=== PATIENT | male | born 1955 | race African-American/Black ===

== ENCOUNTER 2018-11-07 14:52 | Emergency (ER) | payer MEDICAID, OTHER ==
[~2018-11-07] VITALS: Ht 188 cm; Wt 113.4 kg
[2018-11-07] MEDS ORDERED: AMOX-358 PO (15:19)
--- NOTE | 2018-11-07 15:20 | ED Integumentary General ---
General Chief Complaint: Skin/Wound Problems Stated Complaint: LT MIDDLE FINGER WOUND CHECK Nursing Triage Note: PT HAS A HANG NAIL ON HIS LEFT HAND 3RD FINGER THAT IS HURTING HIM. rEPORTS HIS PAIN IS A 10/10. HAS NOT TRIED ANYTHING AT HOME FOR THE PAIN. Source: patient, RN notes reviewed Exam Limitations: no limitations History of Present Illness Date Seen by Provider: Nov 07, 2018 Time Seen by Provider: 15:16 Initial Comments Patient presents c/ c/o worsening left middle finger pain, swelling, and redness x 3 days. No known injury. Did bite off a hang nail prior to onset. Timing/Duration: constant Severity: severe Location: hands (left middle finger) Possible Cause: no cause identified Modifying Factors: improves with other (nothing tried) Associated Symptoms: denies symptoms Allergies and Home Medications Home Medications Amoxicillin/Potassium Clav 1 Each Tablet, 1 EACH PO BID Prescribed by: AISHWARYA KINGSTON on 11/07/18 1519 Patient Home Medication List Home Medication List Reviewed: Yes Review of Systems Review of Systems Constitutional: see HPI Skin: see HPI, other (redness; pain left middle finger) All Other Systems Reviewed Negative Unless Noted: Yes (Negative excepted noted.) Past Njfrysd-Eiqrne-Szijll Hx Patient Social History Alcohol Use: Denies Use Recreational Drug Use: No Recent Foreign Travel: No Contact w/Someone Who Travel: No Recent Infectious Disease Expo: No Recent Hopitalizations: No Physical Abuse: No Sexual Abuse: No Mistreated: No Immunizations Up To Date Tetanus Booster (TDap): Less than 5yrs Seasonal Allergies Seasonal Allergies: No Past Medical History Surgeries: No Respiratory: No Cardiac: Yes Hypertension Neurological: No Genitourinary: No Musculoskeletal: No Endocrine: Yes Diabetes, Insulin dep HEENT: No Cancer: No Integumentary: No Physical Exam Vital Signs Capillary Refill : Less Than 3 Seconds General Appearance: WD/WN, no apparent distress Respiratory: no respiratory distress Neurologic/Psychiatric: no motor/sensory deficits, alert, oriented x 3 Skin: warm/dry, other ((+) obvious paronychia left middle finger nail base; red ; tender) Skin Problem Location: upper extremities (left middle finger) Skin Problem Character: erythema (left middle finger nail base), tenderness ( left middle finger nail base) Progress/Results/Core Measures Results/Orders Vital Signs/I&O Blood Pressure Mean: 117 Departure Impression Primary Impression: Paronychia of finger of left hand Disposition: HOME, SELF-CARE Condition: Stable Departure-Patient Inst. Decision time for Depature: 15:17 Referrals: CHIVO CHRISTY MD (PCP/Family) Primary Care Physician Patient Instructions: Paronychia Add. Discharge Instructions: All discharge instructions reviewed with patient and/or family. Voiced understanding. RECOMMEND 400 mg OF IBUPROFEN &/OR 1000 mg OF TYLENOL EVERY 6 HOURS NEEDED FOR PAIN. DO NOT EXCEED 4000 mg OF TYLENOL IN A 24 HOUR PERIOD OF TIME. Scripts Amoxicillin/Potassium Clav (Augmentin 875-125 Tablet) 1 Each Tablet 1 EACH PO BID for 10 Days, #20 TAB 0 Refills Prov: AISHWARYA KINGSTON DO 11/07/18 AISHWARYA KINGSTON DO Nov 07, 2018 15:19
[2018-11-07 15:31] VITALS: BP 172/68
== END 2018-11-07 15:30 | disposition home or self-care (01) ==
LOC: ER FS 14:55
DX: L03.012 Cellulitis of left finger (principal); I10 Essential (primary) hypertension; E11.9 Type 2 diabetes mellitus without complications
CPT/HCPCS: 99282

== ENCOUNTER 2019-04-10 08:44 | Emergency (ER) | payer MEDICAID ==
[~2019-04-10] VITALS: Ht 187 cm; Wt 126.6 kg
[~2019-04-10 08:44] MED LIST: AMOX-358 PO
--- NOTE | 2019-04-10 09:40 | ED Integumentary General ---
General Chief Complaint: Skin/Wound Problems Stated Complaint: RT SHOULDER SKIN INFECTION Nursing Triage Note: Has had wound on upper back x 5 days that he thought started as a bug/spider bite. Has been increasing in size and becoming more painful. Was started on bactrim and given rocephin shot yesterday in clinic. Has gotten bigger since starting antibiotics and was sent from clinic to ER today due to worsening. Patient denies fevers at home, is currently rating pain at 10/10. Has not taken any meds for pain. History of Present Illness Date Seen by Provider: Apr 10, 2019 Time Seen by Provider: 09:35 Initial Comments 63 yo male diabetic hx as described above is accurate noted lesion ?insect bite on upper back 5 d ago has gradually enlarged become firm and painful has tried to open and squeezed on it at home seen yesterday given Rocephin IM, started sulfa c/o little worse indurated area above lesion no fevers some nausea no V aches all over Allergies and Home Medications Allergies Coded Allergies: hydrocodone (Verified Allergy, Unknown, 04/10/19) Home Medications Amoxicillin/Potassium Clav 1 Each Tablet, 1 EACH PO BID Prescribed by: AISHWARYA KINGSTON on 11/07/18 3989 Patient Home Medication List Home Medication List Reviewed: Yes Review of Systems Review of Systems Constitutional: No fever EENTM: no symptoms reported Respiratory: no symptoms reported Cardiovascular: no symptoms reported Gastrointestinal: No abdominal pain; nausea; No vomiting Past Onxzaza-Iqhsjv-Rjzluu Hx Patient Social History Alcohol Use: Denies Use Recreational Drug Use: No Smoking Status: Never a Smoker 2nd Hand Smoke Exposure: No Recent Foreign Travel: No Contact w/Someone Who Travel: No Recent Infectious Disease Expo: No Recent Hopitalizations: No Physical Abuse: No Sexual Abuse: No Mistreated: No Fear: No Immunizations Up To Date Tetanus Booster (TDap): Less than 5yrs Seasonal Allergies Seasonal Allergies: No Past Medical History Surgeries: No Respiratory: No Cardiac: Yes High Cholesterol, Hypertension Neurological: No Genitourinary: No Gastrointestinal: No Musculoskeletal: No Endocrine: Yes Diabetes, Insulin dep HEENT: No Cancer: No Psychosocial: No Integumentary: No Physical Exam Vital Signs Vital Signs - First Documented 04/10/19 08:52 Temp 36.7 Pulse 79 Resp 18 B/P (MAP) 157/98 (117) Pulse Ox 98 Capillary Refill : Less Than 3 Seconds General Appearance: no apparent distress Comments pt has indurated 6-8 cm area upper back right side has superficial central 1 cm ulcer tender but not warm or reddened suspect spider bite with local rxn Progress/Results/Core Measures Results/Orders Lab Results Laboratory Tests Test 04/10/19 09:45 Range/Units White Blood Count 7.6 4.3-11.0 10^3/uL Red Blood Count 4.46 4.35-5.85 10^6/uL Hemoglobin 13.0 L 13.3-17.7 G/DL Hematocrit 40 40-54 % Mean Corpuscular Volume 89 80-99 FL Mean Corpuscular Hemoglobin 29 25-34 PG Mean Corpuscular Hemoglobin Concent 33 32-36 G/DL Red Cell Distribution Width 14.4 10.0-14.5 % Platelet Count 162 130-400 10^3/uL Mean Platelet Volume 12.2 H 7.4-10.4 FL Neutrophils (%) (Auto) 61 42-75 % Lymphocytes (%) (Auto) 28 12-44 % Monocytes (%) (Auto) 9 0-12 % Eosinophils (%) (Auto) 2 0-10 % Basophils (%) (Auto) 0 0-10 % Neutrophils # (Auto) 4.6 1.8-7.8 X 10^3 Lymphocytes # (Auto) 2.1 1.0-4.0 X 10^3 Monocytes # (Auto) 0.7 0.0-1.0 X 10^3 Eosinophils # (Auto) 0.1 0.0-0.3 10^3/uL Basophils # (Auto) 0.0 0.0-0.1 10^3/uL Sodium Level 135 135-145 MMOL/L Potassium Level 5.5 H 3.6-5.0 MMOL/L Chloride Level 97 L 98-107 MMOL/L Carbon Dioxide Level 23 21-32 MMOL/L Anion Gap 15 H 5-14 MMOL/L Blood Urea Nitrogen 14 7-18 MG/DL Creatinine 1.01 0.60-1.30 MG/DL Estimat Glomerular Filtration Rate > 60 BUN/Creatinine Ratio 14 Glucose Level 246 H 70-105 MG/DL Lactic Acid Level 1.23 0.50-2.00 MMOL/L Calcium Level 9.3 8.5-10.1 MG/DL My Orders Orders - ROSE YIP MD Iv Heplock-Insert (Order) (04/10/19 09:31) Cbc With Automated Diff (04/10/19 09:31) Basic Metabolic Panel (04/10/19 09:31) Lactic Acid Analyzer (04/10/19 09:31) Blood Culture (04/10/19 09:31) Ct Thoracic Spine W (04/10/19 09:58) Iohexol Injection (Omnipaque 350 Mg/Ml 1 (04/10/19 10:30) Received Contrast (Hold Metformin- Contr (04/10/19 10:30) Sodium Chloride Flush (Catheter Flush Sy (04/10/19 10:30) Ns (Ivpb) (Sodium Chloride 0.9% Ivpb Bag (04/10/19 10:30) Fentanyl Injection (Sublimaze Injection (04/10/19 11:00) Clindamycin 600 Mg/50 Ml Ivpb (Cleocin P (04/10/19 11:30) Methylprednisolone Sod Succ (Solu-Medrol (04/10/19 12:00) Fentanyl Injection (Sublimaze Injection (04/10/19 12:00) Medications Given in ED Current Medications Medications Dose Ordered Sig/Muna Route Start Time Stop Time Status Last Admin Dose Admin Fentanyl Citrate 50 mcg ONCE ONCE IVP 04/10/19 11:00 04/10/19 11:01 DC 04/10/19 11:22 50 MCG Iohexol 100 ml ONCE ONCE IV 04/10/19 10:30 04/10/19 10:31 DC 04/10/19 11:07 100 ML Sodium Chloride 10 ml NEEDED PRN IV 04/10/19 10:30 04/10/19 11:07 10 ML Sodium Chloride 100 ml ONCE ONCE IV 04/10/19 10:30 04/10/19 10:31 DC 04/10/19 11:07 100 ML Vital Signs/I&O 04/10/19 08:52 Temp 36.7 Pulse 79 Resp 18 B/P (MAP) 157/98 (117) Pulse Ox 98 Blood Pressure Mean: 117 Progress Progress Note : Progress Note Hb 13 WBC 7,600 glucose 246 lactic normal creat 1.0 pt not febrile or tachycardic Departure Impression Primary Impression: Spider bite Qualified Codes: T63.304A - Toxic effect of unspecified spider venom, u ndetermined, initial encounter Disposition: HOME, SELF-CARE Condition: Stable Departure-Patient Inst. Decision time for Depature: 12:01 Referrals: CHIVO CHRISTY MD (PCP/Family) Primary Care Physician Patient Instructions: Spider Bites ROSE YIP MD Apr 10, 2019 09:40
[2019-04-10 10:28] LABS: WHITE BLOOD COUNT 7.6 10^3/uL (4.3-11.0)
[2019-04-10 10:29] LABS: BASOPHILS % (AUTO) 0 % (0-10); EOSINOPHILS # (AUTO) 0.1 10^3/uL (0.0-0.3); EOSINOPHILS % (AUTO) 2 % (0-10); HEMATOCRIT 40 % (40-54); LYMPHOCYTES # (AUTO) 2.1 X 10^3 (1.0-4.0); LYMPHOCYTES % (AUTO) 28 % (12-44); MEAN CORPUSCULAR HEMOGLOBIN 29 PG (25-34); MEAN CORPUSCULAR HGB CONC 33 G/DL (32-36); MEAN CORPUSCULAR VOLUME 89 FL (80-99); MEAN PLATELET VOLUME 12.2 FL (7.4-10.4); MONOCYTES # (AUTO) 0.7 X 10^3 (0.0-1.0); MONOCYTES % (AUTO) 9 % (0-12); NEUTROPHILS # (AUTO) 4.6 X 10^3 (1.8-7.8); NEUTROPHILS % (AUTO) 61 % (42-75); PLATELET COUNT 162 10^3/uL (130-400); RED CELL DISTRIBUTION WIDTH 14.4 % (10.0-14.5)
[2019-04-10] MEDS ORDERED: CATHETER FLUSH 10 ML SYR IV PRN (10:30)
[2019-04-10] MEDS ORDERED: IOHEXOL 350 MG/ML 100 ML (OMNIPAQUE 350) VIAL IV ONE (10:30)
[2019-04-10] MEDS ORDERED: NS 100 ML (IVPB) BAG IV ONE (10:30)
[2019-04-10] MEDS ORDERED: HOLD METFORMIN - RECEIVED CONTRAST 20 ML VIAL IV SCH (10:30)
[2019-04-10 10:48] LABS: POTASSIUM 5.5 MMOL/L (3.6-5.0); SODIUM 135 MMOL/L (135-145)
[2019-04-10 10:49] LABS: BUN/CREATININE RATIO 14; CALCIUM 9.3 MG/DL (8.5-10.1); CARBON DIOXIDE 23 MMOL/L (21-32); CHLORIDE 97 MMOL/L (98-107); CREATININE SERUM 1.01 MG/DL (0.60-1.30); GFR ESTIMATED > 60; GLUCOSE 246 MG/DL (70-105)
[2019-04-10] MEDS ORDERED: fentaNYL INJECTION 100 MCG/2 ML AMP IVP ONE ×2 (11:00→12:00)
[2019-04-10] MEDS ORDERED: CLINDAMYCIN 600 MG/50 ML IVPB 50 ML IV ONE (11:30)
--- NOTE | 2019-04-10 11:45 | Diagnostic Imaging Report ---
PROCEDURE: CT thoracic spine with contrast. TECHNIQUE: Multiple contiguous axial images were obtained through the thoracic spine after the intrathecal administration of contrast. Sagittal and coronal reformations were then performed. Auto Exposure Controls were utilized during the CT exam to meet ALARA standards for radiation dose reduction. INDICATION: Wound on the upper back for five days. COMPARISON: None. FINDINGS: No acute fracture or dislocation is seen in the thoracic spine. No acute osseous abnormalities. Alignment of the thoracic spine is anatomic. Degenerative changes are present in the thoracic spine. Nonspecific subcutaneous inflammatory changes are seen in the upper back right of midline. No focal fluid collections are identified. Generalized skin thickening is present. Included views of the lungs demonstrate no focal consolidation or mass. Hepatic steatosis is noted. IMPRESSION: 1. Nonspecific inflammatory changes in the subcutaneous tissues of the upper back just right of midline. No focal soft tissue mass or fluid collection. 2. Hepatic steatosis. 3. No acute fracture or dislocation in the thoracic spine. No acute osseous abnormalities. Dictated by: Dictated on workstation # [id number]
[2019-04-10] MEDS ORDERED: methylPREDNISolone 125 MG (Solu-MEDROL) VIAL IVP ONE (12:00)
[2019-04-10 12:45] VITALS: BP 146/87
== END 2019-04-10 12:45 | disposition home or self-care (01) ==
LOC: EDUNIT# 08:44 → ER FS 08:45
DX: T63.301A Toxic effect of unspecified spider venom, accidental (unintentional), initial encounter (principal); I10 Essential (primary) hypertension; E11.9 Type 2 diabetes mellitus without complications; E78.00 Pure hypercholesterolemia, unspecified; Z88.5 Allergy status to narcotic agent
CPT/HCPCS: 36415; 72129; 80048; 83605; 85025; 87040

== ENCOUNTER 2019-04-14 08:42 | Emergency (ER) | payer MEDICAID ==
[~2019-04-14] VITALS: Ht 187.9 cm; Wt 122.7 kg
[2019-04-14] MEDS ORDERED: oxyCODONE/APAP 5/325MG (PERCOCET 5) TABLET ONE (08:47)
--- NOTE | 2019-04-14 08:50 | ED General ---
General Stated Complaint: RT SHOULDER ABSCESS History of Present Illness Date Seen by Provider: Apr 14, 2019 Time Seen by Provider: 08:49 Initial Comments Patient presents emergency department for evaluation of worsening pain and swelling in area where he thinks he was bit by a spider last week. He says the spider bite would've occurred on April 05 and he does remember being pricked. He says it still having pain and he was seen here on April [address] scan done which showed subcutaneous inflammation but no fluid collection and he was continued on Rocephin and Bactrim. He says there is been no drainage but the pain and swelling has increased significantly. He denies systemic fevers chills nausea vomiting. He went to his primary care provider today and they told him he needs to see a surgeon which they set up for him for later this morning but he said he did not want to go without pain control so he came here to get a Percocet 10 as he says that helps his pain. Allergies and Home Medications Allergies Coded Allergies: hydrocodone (Verified Allergy, Unknown, 04/10/19) Home Medications Amoxicillin/Potassium Clav 1 Each Tablet, 1 EACH PO BID Prescribed by: AISHWARYA KINGSTON on 11/07/18 1519 Patient Home Medication List Home Medication List Reviewed: Yes Review of Systems Review of Systems Constitutional: no symptoms reported EENTM: no symptoms reported Cardiovascular: no symptoms reported Gastrointestinal: no symptoms reported Skin: lesions All Other Systems Reviewed Negative Unless Noted: Yes Past Iyvfgxf-Lizhny-Phdmxn Hx Patient Social History 2nd Hand Smoke Exposure: No Recent Hopitalizations: No Immunizations Up To Date Tetanus Booster (TDap): Less than 5yrs Seasonal Allergies Seasonal Allergies: No Past Medical History Surgeries: No Respiratory: No Cardiac: Yes High Cholesterol, Hypertension Neurological: No Genitourinary: No Gastrointestinal: No Musculoskeletal: No Endocrine: Yes Diabetes, Insulin dep HEENT: No Cancer: No Psychosocial: No Integumentary: No Physical Exam Vital Signs Capillary Refill : Height, Weight, BMI Height: 6'2.00" Weight: 250lbs. oz. [id number]; 36.00 BMI Method:Stated General Appearance: No Apparent Distress, WD/WN Respiratory: Lungs Clear, No Respiratory Distress Cardiovascular: Regular Rate, Rhythm Gastrointestinal: Non Tender, Soft Skin: Other (large area of induration and erythema along right thoracic paraspinal region that is painful to palpation.) Progress/Results/Core Measures Suspected Sepsis SIRS Temperature: Pulse: Respiratory Rate: Blood Pressure / Mean: Results/Orders My Orders Orders - BRETT WYNNE DO Oxycodone/Acet 10/325mg Tablet (Percocet (04/14/19 09:00) Oxycodone/Apap 5/325mg Tablet (Percocet (04/14/19 08:47) Oxycodone/Apap 5/325mg Tablet (Percocet (04/14/19 09:00) Vital Signs/I&O Capillary Refill : Progress Note : Progress Note I most feel definitively that there is an abscess present that needs to be drained. I told him that this could be done here but he is scheduled to see the surgeon and given there may not be an abscess and this may be a black or brown recluse spider bite wound needing debridement I think it is better if he gets seen by the surgeon. Transportation was arranged for the patient to get to the surgeon's office and he was given a Percocet 10 here for pain control. Patient will go straight to the surgeon's office now and I told him he is always welcome to come back here if he has any further problems. Patient aware and agreeable with plan and verbalized understanding the above instructions. Departure Impression Primary Impression: Spider bite wound Disposition: 01 HOME, SELF-CARE Condition: Stable Departure-Patient Inst. Referrals: CHIVO CHRISTY MD (PCP/Family) Primary Care Physician Patient Instructions: Spider Bites BRETT WYNNE DO Apr 14, 2019 08:50
[2019-04-14] MEDS ORDERED: oxyCODONE/APAP 5/325MG (PERCOCET 5) TABLET PO ONE (09:00)
[2019-04-14] MEDS ORDERED: oxyCODONE/APAP 10/325MG (PERCOCET 10) TABLET PO ONE (09:00)
[2019-04-14 09:04] VITALS: BP 144/92
== END 2019-04-14 09:04 | disposition home or self-care (01) ==
LOC: EDUNIT# 08:42 → ER FS 08:43
DX: S41.051A Open bite of right shoulder, initial encounter (principal); I10 Essential (primary) hypertension; E78.00 Pure hypercholesterolemia, unspecified; E11.9 Type 2 diabetes mellitus without complications; Z88.5 Allergy status to narcotic agent; W57.XXXA Bitten or stung by nonvenomous insect and other nonvenomous arthropods, initial encounter
CPT/HCPCS: 99282

== ENCOUNTER 2019-04-15 11:25 | Emergency (ER) | payer MEDICAID ==
[~2019-04-15] VITALS: Ht 187.9 cm; Wt 122.7 kg
--- NOTE | 2019-04-15 13:11 | ED Integumentary General ---
General Chief Complaint: Skin/Wound Problems Stated Complaint: RT SHOULDER ABSCESS Nursing Triage Note: Pt arrived to the ER with . Pt was alert, oriented and ambulatory at arrival. Pt said he was sent over here by [facility]. This RN asked why and he stated he did not know. This RN called Dr. Christy's office and spoke to Sanaz. She stated,"pt was seen yesterday in ER and left, because he only got 5 of percocet and went over to [facility]. Pt was supposed to go to [place] for consult with surgery at [facility], but did not go, because he had a today. Pt's adviced [facility] staff today that patient had fever, so they to him to go to ER. Pt has consult tomorrow at 1400 with surgery in [place]." Pt has had bite since saturday he stated and his pain is a 1000/10. Source: patient Exam Limitations: no limitations History of Present Illness Date Seen by Provider: Apr 15, 2019 Time Seen by Provider: 13:06 Initial Comments The patient is a 63-year-old black male who was in this emergency room on 04/10, 04/14, and today. He was also seen at [facility] on 04/10 and 04/15. He had an arranged appointment at a [place] surgeon's but did not go because he had a to attend. I believe that this was on 04/14. He was seen at [facility] on 04/15 and another appointment was arranged in [place]. He complains of significant pain in the area of the lesion. There is apparently been no drainage. He states that the pain seems to be radiating more upward towards his neck. Timing/Duration: getting worse Location: torso Allergies and Home Medications Allergies Coded Allergies: hydrocodone (Verified Allergy, Unknown, 04/10/19) Home Medications Amoxicillin/Potassium Clav 1 Each Tablet, 1 EACH PO BID Prescribed by: AISHWARYA KINGSTON on 11/07/18 2019 Patient Home Medication List Home Medication List Reviewed: Yes Review of Systems Review of Systems Constitutional: see HPI Skin: see HPI, other (induration) Past Gllevfv-Todfcs-Dhttkg Hx Patient Social History Alcohol Use: Denies Use Recreational Drug Use: No Smoking Status: Never a Smoker 2nd Hand Smoke Exposure: No Recent Foreign Travel: No Contact w/Someone Who Travel: No Recent Infectious Disease Expo: No Recent Hopitalizations: No Physical Abuse: No Sexual Abuse: No Mistreated: No Fear: No Immunizations Up To Date Tetanus Booster (TDap): Less than 5yrs Seasonal Allergies Seasonal Allergies: No Past Medical History Surgeries: No Respiratory: No Cardiac: Yes High Cholesterol, Hypertension Neurological: No Genitourinary: No Gastrointestinal: No Musculoskeletal: No Endocrine: Yes Diabetes, Insulin dep HEENT: No Cancer: No Psychosocial: No Integumentary: No Physical Exam Vital Signs Vital Signs - First Documented 04/15/19 11:55 Temp 36.7 Pulse 84 Resp 18 B/P (MAP) 116/62 (80) Pulse Ox 95 O2 Delivery Room Air Capillary Refill : Less Than 3 Seconds General Appearance: mild distress HEENT: normal ENT inspection Neck: full range of motion Cardiovascular: normal peripheral pulses, regular rate, rhythm, no edema, no gallop, no JVD, no murmur Respiratory: chest non-tender, lungs clear, normal breath sounds, no respiratory distress, no accessory muscle use Comments There is an area just to the right of the thoracic spine in the upper intrascapular area. This had a central open area without drainage that was about 3 mm in diameter. There was induration asymmetrically from that point with the bulk of that being superior to the wound. There was tenderness to palpation. Progress/Results/Core Measures Results/Orders Vital Signs/I&O 04/15/19 11:55 Temp 36.7 Pulse 84 Resp 18 B/P (MAP) 116/62 (80) Pulse Ox 95 O2 Delivery Room Air Blood Pressure Mean: 80 Departure Communication (Admissions) Patient given prescription for Percocet 10, 4 times a day number 10 Impression Primary Impression: abscess upper back Disposition: 01 HOME, SELF-CARE Condition: Stable/Unchanged Departure-Patient Inst. Decision time for Depature: 13:52 Referrals: CHIVO CHRISTY MD (PCP/Family) Primary Care Physician VIKTORIYA PEARSON MD Apr 15, 2019 13:11
[2019-04-15 14:08] VITALS: BP 119/69
== END 2019-04-15 14:08 | disposition home or self-care (01) ==
LOC: EDUNIT# 11:25 → ER FS 11:26
DX: L02.212 Cutaneous abscess of back [any part, except buttock and flank] (principal); I10 Essential (primary) hypertension; E78.00 Pure hypercholesterolemia, unspecified; E11.9 Type 2 diabetes mellitus without complications; Z88.5 Allergy status to narcotic agent
CPT/HCPCS: 99282

== ENCOUNTER 2019-04-20 09:32 | Emergency (ER) | payer MEDICAID ==
[~2019-04-20] VITALS: Ht 187 cm; Wt 122.0 kg
[2019-04-20 09:43] VITALS: BP 142/102
--- NOTE | 2019-04-20 09:57 | ED Integumentary General ---
General Chief Complaint: Skin/Wound Problems Stated Complaint: RT SHOULDER ABSCESS History of Present Illness Date Seen by Provider: Apr 20, 2019 Time Seen by Provider: 09:35 Initial Comments The patient is a 63-year-old gentleman who presents with concern for a small area of skin induration and discomfort to his right upper back. This is the sixth time that the patient has presented to the emergency department or to the primary care clinic for this issue in the last week. He is following with a surgeon in [place] for this issue and is on appropriate antibiotics for cellulitis and he admits the lesion is resolving, but continues to insist that he require strong pain medication. He did not get a prescription for pain medication from his surgeon, who is watching to ensure resolution and does not currently plan to incise and drain. No fevers, nausea or vomiting or other systemic symptoms of concern. Patient is counseled that the emergency department is unable to provide him with additional prescriptions for pain medications for his resolving wound which is being primarily managed by a specialist. He is counseled that if he feels he needs stronger pain medication than ibuprofen and Tylenol that he needs to address this with his surgeon. He is counseled that we will provide one dose of Percocet today as a courtesy. The patient will then be released to follow up very closely with his surgeon. He understands and agrees. Allergies and Home Medications Allergies Coded Allergies: hydrocodone (Verified Allergy, Unknown, 04/10/19) Home Medications Amoxicillin/Potassium Clav 1 Each Tablet, 1 EACH PO BID Prescribed by: AISHWARYA KINGSTON on 11/07/18 6359 Patient Home Medication List Home Medication List Reviewed: Yes Review of Systems Review of Systems Constitutional: see HPI All Other Systems Reviewed Negative Unless Noted: Yes (Negative excepted noted.) Past Ocodrww-Pblrov-Hrhcwx Hx Past Med/Social Hx: Reviewed Nursing Past Med/Soc Hx Patient Social History 2nd Hand Smoke Exposure: No Recent Hopitalizations: No Immunizations Up To Date Tetanus Booster (TDap): Less than 5yrs Seasonal Allergies Seasonal Allergies: No Past Medical History Surgeries: No Respiratory: No Cardiac: Yes High Cholesterol, Hypertension Neurological: No Genitourinary: No Gastrointestinal: No Musculoskeletal: No Endocrine: Yes Diabetes, Insulin dep HEENT: No Cancer: No Psychosocial: No Integumentary: No Family Medical History Reviewed Nursing Family Hx Physical Exam Vital Signs Capillary Refill : General Appearance: no apparent distress Comments This is an older -[place] male appearing nontoxic and in no acute distress. Head is normocephalic and atraumatic. Neck is supple and nontender. Oropharynx is moist. Lungs are clear to auscultation at all stations. There is a normal S1 and S2 without rubs or gallops and capillary refill is appropriate, less than 2 seconds globally. Abdomen is soft, nontender nondistended. Skin is warm and dry without cyanosis, clubbing or edema. Examination of the back reveals an approximately 5 cm area of mild erythema and induration which appears to be resolving appropriately. This is present to the right upper back medial to the scapula. Psychiatrically, the patient mistreats appropriate mood and affect and is alert. Progress/Results/Core Measures Results/Orders My Orders Orders - CAROLE HANLEY MD Oxycodone/Apap 5/325mg Tablet (Percocet (04/20/19 10:00) Departure Impression Primary Impression: Cellulitis of back Disposition: 01 HOME, SELF-CARE Condition: Improved Departure-Patient Inst. Referrals: CHIVO CHRISTY MD (PCP/Family) Primary Care Physician Patient Instructions: Cellulitis (Skin Infection), Adult (DC) CAROLE HANLEY MD Apr 20, 2019 09:57
--- NOTE | 2019-04-20 09:58 | NUR ---
Patient stated he did not want the percocet 5/325 because they do not work for him and said that he was leaving. This RN stated he had discharge paperwork but he did not want to stay to sign them.
[2019-04-20] MEDS ORDERED: oxyCODONE/APAP 5/325MG (PERCOCET 5) TABLET PO ONE (10:00)
== END 2019-04-20 10:04 | disposition home or self-care (01) ==
LOC: EDUNIT# 09:32 → ER FS 09:33
DX: L03.312 Cellulitis of back [any part except buttock and flank] (principal); I10 Essential (primary) hypertension; E11.9 Type 2 diabetes mellitus without complications; E78.00 Pure hypercholesterolemia, unspecified; Z88.5 Allergy status to narcotic agent
CPT/HCPCS: 99282

== ENCOUNTER → 2019-12-22 | Outpatient (CLI) | payer MEDICAID ==
[2019-12-22 10:36] LABS: CARBON DIOXIDE 25 MMOL/L (21-32); CHLORIDE 98 MMOL/L (98-107); POTASSIUM 4.8 MMOL/L (3.6-5.0); SODIUM 137 MMOL/L (135-145)
[2019-12-22 10:37] LABS: BUN/CREATININE RATIO 12; CREATININE SERUM 0.92 MG/DL (0.60-1.30); GFR ESTIMATED > 60
[2019-12-22 10:39] LABS: ALANINE AMINOTRANSFERASE 21 U/L (0-55); ALBUMIN 4.2 GM/DL (3.2-4.5); ALKALINE PHOSPHATASE 74 U/L (40-136); BILIRUBIN,TOTAL 0.7 MG/DL (0.1-1.0); CALCIUM 9.5 MG/DL (8.5-10.1); GLUCOSE 442 MG/DL (70-105); TOTAL PROTEIN 7.5 GM/DL (6.4-8.2)
[2019-12-22 15:12] LABS: TRIGLYCERIDES 263 MG/DL (<150); VLDL CHOLESTEROL 53 MG/DL (5-40)
[2019-12-22 15:17] LABS: CHOLESTEROL 114 MG/DL (< 200)
[2019-12-22 15:18] LABS: HDL CHOLESTEROL 23 MG/DL (40-60)
== END ==
LOC: LAB FS 09:19
PROVIDERS: ATTEND Family Medicine
DX: E11.9 Type 2 diabetes mellitus without complications (principal); E78.5 Hyperlipidemia, unspecified
CPT/HCPCS: 36415; 80053; 80061; 83036

== ENCOUNTER → 2020-04-07 | Outpatient (CLI) | payer MEDICAID | LOC: CARD 13:30 | PROVIDERS: ATTEND Internal Medicine Cardiovascular Disease | DX: I34.0 Nonrheumatic mitral (valve) insufficiency (principal); I11.9 Hypertensive heart disease without heart failure; E11.9 Type 2 diabetes mellitus without complications; E78.2 Mixed hyperlipidemia | CPT/HCPCS: 93306 ==

== ENCOUNTER → 2020-05-09 | Outpatient (CLI) | payer MEDICAID ==
[~2020-05-09] VITALS: Ht 187 cm; Wt 123.0 kg
[~2020-05-09] MED LIST changes: +REGADENOSON 0.4 MG/5 ML SYR (LEXISCAN) IV ONE
[2020-05-09] MEDS: CATHETER FLUSH 10 ML SYR IV PRN ×2 (08:24→09:34)
[2020-05-09 13:04] VITALS: BP 176/96
--- NOTE | 2020-05-09 13:04 | Cardiology Stress Test Report ---
Stress Test Report Date of Procedure/Referring: Date of Procedure: May 09, 2020 PCP Karmen Sandoval MD Admitting Physician Shelley Ba MD Indications: Diabetes mellitus Baseline Heart Rate: 63 Baseline Blood Pressure: Blood Pressure Systolic: 176 Blood Pressure Diastolic: 96 Baseline EKG: Baseline EKG: sinus rhythm, QS in V1 and V2, T-wave inversion in lead 2, 3, aVF Summary After explaining the procedure to the patient, he signed a consent and then brought to the stress nuclear laboratory. Patient received 0.4 mg Lexiscan for stress test, ECG, heart rate and blood pressure were monitored continuously. Resting and stress dose of radio tracer were injected, imaging was acquired and reviewed in short axis, horizontal long axis and vertical long axis views. TID: 1.05 SSS: 0 SDS: 0 EF: 45 1. Patient tolerated Lexiscan well 2. Baseline EKG abnormality persisted during test 3. Diaphragmatic attenuation with no significant ischemia or infarction on SPECT images 4. Normal left ventricular size, EF 45 percent KARMEN SANDOVAL MD May 09, 2020 13:04
== END ==
LOC: CARD 08:00
PROVIDERS: ATTEND Internal Medicine Cardiovascular Disease
DX: I10 Essential (primary) hypertension (principal); E11.9 Type 2 diabetes mellitus without complications; E78.2 Mixed hyperlipidemia
CPT/HCPCS: 78452; 93017; A9502

== ENCOUNTER → 2020-11-22 | Outpatient (CLI) | payer MEDICAID ==
[~2020-11-22] MED LIST changes: -REGADENOSON 0.4 MG/5 ML SYR (LEXISCAN) IV ONE
[2020-11-22 09:59] LABS: BUN/CREATININE RATIO 9; CALCIUM 9.2 MG/DL (8.5-10.1); CARBON DIOXIDE 24 MMOL/L (21-32); CHLORIDE 104 MMOL/L (98-107); CREATININE SERUM 0.97 MG/DL (0.60-1.30); GFR ESTIMATED > 60; GLUCOSE 381 MG/DL (70-105); POTASSIUM 4.2 MMOL/L (3.6-5.0); SODIUM 138 MMOL/L (135-145)
[2020-11-22 10:00] LABS: ALANINE AMINOTRANSFERASE 20 U/L (0-55); ALKALINE PHOSPHATASE 92 U/L (40-136); BILIRUBIN,TOTAL 0.5 MG/DL (0.1-1.0); TOTAL PROTEIN 7.9 GM/DL (6.4-8.2)
[2020-11-22 15:08] LABS: CHOLESTEROL 151 MG/DL (< 200); HDL CHOLESTEROL 24 MG/DL (40-60); TRIGLYCERIDES 517 MG/DL (<150); VLDL CHOLESTEROL 103 MG/DL (5-40)
== END ==
LOC: LAB FS 09:05
PROVIDERS: ATTEND Family Medicine
DX: E11.9 Type 2 diabetes mellitus without complications (principal)
CPT/HCPCS: 36415; 80053; 80061

== ENCOUNTER → 2021-02-23 | Outpatient (CLI) | payer MEDICAID | LOC: LAB FS 09:06 | PROVIDERS: ATTEND Family Medicine | DX: E11.9 Type 2 diabetes mellitus without complications (principal) | CPT/HCPCS: 36415; 83036 ==

== ENCOUNTER → 2021-09-20 | Outpatient (CLI) | payer MEDICAID ==
[2021-09-20 13:11] LABS: POTASSIUM 4.5 MMOL/L (3.6-5.0)
[2021-09-20 13:12] LABS: ALBUMIN 4.1 GM/DL (3.2-4.5); CALCIUM 9.5 MG/DL (8.5-10.1); CREATININE SERUM 0.94 MG/DL (0.60-1.30); TOTAL PROTEIN 8.1 GM/DL (6.4-8.2)
== END ==
LOC: LAB FS 12:19
PROVIDERS: ATTEND Family Medicine
DX: E11.9 Type 2 diabetes mellitus without complications (principal)
CPT/HCPCS: 36415; 80053; 80061; 83036

== ENCOUNTER → 2022-03-28 | Outpatient (CLI) | payer MEDICAID ==
[2022-03-28 13:06] LABS: POTASSIUM 3.8 MMOL/L (3.6-5.0)
[2022-03-28 13:07] LABS: ALBUMIN 3.9 GM/DL (3.2-4.5); BILIRUBIN,TOTAL 0.7 MG/DL (0.1-1.0); CALCIUM 9.4 MG/DL (8.5-10.1); CREATININE SERUM 0.99 MG/DL (0.60-1.30); TOTAL PROTEIN 7.6 GM/DL (6.4-8.2)
== END ==
LOC: LAB FS 11:45
PROVIDERS: ATTEND Family Medicine
DX: I10 Essential (primary) hypertension (principal); F32.9 Major depressive disorder, single episode, unspecified; E78.5 Hyperlipidemia, unspecified; E11.40 Type 2 diabetes mellitus with diabetic neuropathy, unspecified
CPT/HCPCS: 36415; 80053; 80061; 82043; 83036

== ENCOUNTER → 2022-05-15 | Outpatient (CLI) | payer MEDICAID | LOC: CARDFS 09:09 | PROVIDERS: ATTEND Internal Medicine Cardiovascular Disease | DX: I34.0 Nonrheumatic mitral (valve) insufficiency (principal); I11.9 Hypertensive heart disease without heart failure; I25.10 Atherosclerotic heart disease of native coronary artery without angina pectoris | CPT/HCPCS: 93306 ==